=== PATIENT | male | born 1940 | race African-American/Black ===

== ENCOUNTER 2020-07-27 03:06 | Inpatient (IN) | payer OTHER ==
[~2020-07-27] VITALS: Ht 188 cm; Wt 112.1 kg
[2020-07-27 04:30] LABS: Basophils # (auto) 0 10 ^3/uL (0-0.2); Basophils % (auto) 0.4 % (0.0-2.0); Eosinophils # (auto) 0 10 ^3/uL (0-0.8); Hematocrit 41.6 % (41.0-53.0); Hemoglobin 13.8 g/dL (13.5-17.5); Lymphocytes # (auto) 1.5 10 ^3/uL (0.4-5.4); Mean Corpuscular Hemoglobin 32.7 pg (28.0-32.0); Mean Corpuscular Hgb Conc. 33.2 g/dL (32.0-36.0); Mean Corpuscular Volume 98.4 fL (80.0-100.0); Monocytes # (auto) 0.7 10 ^3/uL (0-1.3); Monocytes % (auto) 9.1 % (0.0-12.0); Neutrophils # (auto) 5.5 10 ^3/uL (1.6-8.6); Neutrophils % (auto) 71.5 % (37.0-80.0); Nucleated Red Blood Cells % 0.1 %; Platelet Count (auto) 191 10^3/uL (140-450); Red Blood Cells 4.22 10^6/uL (4.5-5.90); Red Cell Distribution Width 14.1 % (11.8-14.3); White Blood Cell 7.7 10^3/uL (4.4-10.8)
[2020-07-27 04:49] LABS: INR 1.09 (0.9-1.15); Partial Thromboplastin Time 29.9 sec (23.0-31.2)
[2020-07-27 04:59] LABS: Albumin 3.9 g/dL (3.4-5.0); Magnesium 2.5 mg/dL (1.6-2.6); Potassium 3.9 mmol/L (3.5-5.1)
[2020-07-27 05:05] LABS: BUN/Creatinine Ratio 19.3; Bilirubin, Total 1.2 mg/dL (0.2-1.0)
[2020-07-27] MEDS ORDERED: ONDANSETRON HCL 4 MG/2 ML VIAL IV ONE (06:45)
[2020-07-27] MEDS ORDERED: MORPHINE SULFATE 4 MG/ML SYR/VIAL IV ONE (06:45)
[2020-07-27] MEDS ORDERED: NITROGLYCERIN 0.4 MG SL TAB SL ONE (08:30)
[2020-07-27] MEDS ORDERED: ASPirin 81 mg TAB PO ONE (08:30)
[2020-07-27] MEDS ORDERED: ENOXAPARIN SOD 150 MG/1 ML SYRINGE SC ONE (08:30)
[2020-07-27] MEDS ORDERED: ENOXAPARIN SOD 100 MG/1 ML SYRINGE SC ONE (09:00)
[2020-07-27] MEDS ORDERED: ENOXAPARIN SOD 120 MG/0.8 ML SYRINGE SC ONE (09:00)
[2020-07-27] MEDS ORDERED: MORPHINE SULF INJ 2 MG/ML SYRINGE 1ML IV PRN (09:30)
[2020-07-27] MEDS ORDERED: NITROGLYCERIN 0.4 MG SL TAB SL PRN (09:30)
[2020-07-27] MEDS ORDERED: TEMAZEPAM 15 MG CAP PO PRN (10:00)
[2020-07-27] MEDS: ASPirin 81 mg TAB PO SCH (10:00)
[2020-07-27] MEDS ORDERED: DEXTROSE (50%) 50ML SYRG IV PRN (10:00)
[2020-07-27] MEDS ORDERED: CLOPIDOGREL BISULFATE 75 MG TAB PO ONE (10:00)
[2020-07-27] MEDS ORDERED: LACTULOSE 20Gm/30ML SOLN PO PRN (10:00)
[2020-07-27] MEDS ORDERED: ACETAMINOPHEN 500 MG TAB PO PRN (10:00)
[2020-07-27] MEDS: CLOPIDOGREL BISULFATE 75 MG TAB PO SCH (10:00)
[2020-07-27] MEDS ORDERED: ONDANSETRON HCL 4 MG/2 ML VIAL IV PRN (10:00)
[2020-07-27] MEDS ORDERED: traMADol HCL 50 MG TAB PO PRN (10:00)
[2020-07-27] MEDS: NITROGLYCERIN 0.2MG/HR TOPICAL PATCH TD SCH (10:20)
[2020-07-27] MEDS ORDERED: LISI20TA28 PO (10:56)
[2020-07-27] MEDS ORDERED: ASPI-543 PO (10:56)
[2020-07-27] MEDS ORDERED: ATOR-47 PO (10:56)
[2020-07-27] MEDS ORDERED: NIFE1TAB30 PO (10:56)
[2020-07-27] MEDS ORDERED: HYDR-4072 PO (10:56)
[2020-07-27] MEDS ORDERED: ISOS60TA24 PO (10:56)
[2020-07-27] MEDS: InsuLIN REG 1unit/0.01ml Soln (100units/ml) SC SCH ×3 (11:30→22:00)
[2020-07-27] MEDS: ACCU-CHEK COMFORT CURVE STRIP VI SCH ×3 (12:08→21:55)
[2020-07-27] MEDS ORDERED: IOHEXOL 350 MG/ML 100ML IJ ONE ×2 (13:10→13:31)
[2020-07-27] MEDS ORDERED: LIDOCAINE 2%HCL (LOCAL ANESTH.) INJ 20ML MDV ONE (13:10)
[2020-07-27] MEDS ORDERED: MIDAZOLAM HCL 1MG/1ML-2 ML VIAL ONE (13:12)
[2020-07-27] MEDS ORDERED: SODIUM CHL 0.9% 50 ML ONE (13:12)
[2020-07-27] MEDS ORDERED: ANGIOMAX 250 MG VIAL IV ONE (13:12)
[2020-07-27] MEDS ORDERED: fentaNYL CITRATE 100 MCG/2 ML VL ONE (13:12)
[2020-07-27] MEDS ORDERED: HEPARIN SODIUM (PORCINE) 5000 UNITS/ML 1ML VIAL ONE (13:25)
[2020-07-27] MEDS ORDERED: VERAPAMIL 2.5MG/ML INJ 2ML VIAL IV ONE (13:25)
[2020-07-27] MEDS ORDERED: hydrALAZINE HCL 20 MG/ML VL ONE (13:51)
[2020-07-27] MEDS: SODIUM CHLOR 0.9% PF (SALINE LOCK) 10ML VIAL/SYR IV SCH ×2 (14:00→21:54)
[2020-07-27 22:00] VITALS: BP 133/75
[2020-07-27] MEDS ORDERED: ATORVASTATIN 20 MG TAB PO SCH (22:00)
[2020-07-27] MEDS ORDERED: ENOXAPARIN SOD 120 MG/0.8 ML SYRINGE SC SCH (22:00)
[2020-07-28 05:00] VITALS: BP 146/77
[2020-07-28] MEDS: InsuLIN REG 1unit/0.01ml Soln (100units/ml) SC SCH ×2 (06:12→11:30)
[2020-07-28 06:18] LABS: Cholesterol 147 mg/dL (< 200); HDL Cholesterol 51 mg/dL (40-59); LDL Cholesterol 77 mg/dL (< 100); Triglycerides 131 mg/dL (< 150)
[2020-07-28] MEDS: SODIUM CHLOR 0.9% PF (SALINE LOCK) 10ML VIAL/SYR IV SCH ×2 (06:32→11:36)
[2020-07-28] MEDS: ACCU-CHEK COMFORT CURVE STRIP VI SCH ×2 (06:32→11:30)
[2020-07-28] MEDS ORDERED: HYDROcodone-ACET 5/325MG TAB PO ONE (08:45)
[2020-07-28 09:00] VITALS: BP 138/80
[2020-07-28] MEDS: ASPirin 81 mg TAB PO SCH (09:01)
[2020-07-28] MEDS: CLOPIDOGREL BISULFATE 75 MG TAB PO SCH (09:01)
[2020-07-28] MEDS: NITROGLYCERIN 0.2MG/HR TOPICAL PATCH TD SCH (09:02)
[2020-07-28] MEDS ORDERED: LACTULOSE 20Gm/30ML SOLN PO ONE (10:30)
[2020-07-28 13:00] VITALS: BP 129/64
[2020-07-28 13:30] VITALS: BP 129/64
== END 2020-07-28 15:00 | disposition home or self-care (01) | DRG 250 ==
LOC: EDBD 03:06 → ER 03:09 → TELE 09:19 → TELE-CENTR 16:04
PROVIDERS: ADMIT Internal Medicine; ATTEND Internal Medicine
PROC: 4A023N7 Measurement of Cardiac Sampling and Pressure, Left Heart, Percutaneous Approach (ICD-10-PCS; principal; 2020-07-27)
PROC: 02703ZZ Dilation of Coronary Artery, One Artery, Percutaneous Approach (ICD-10-PCS; 2020-07-27)
PROC: B2111ZZ Fluoroscopy of Multiple Coronary Arteries using Low Osmolar Contrast (ICD-10-PCS; 2020-07-27)
PROC: B2151ZZ Fluoroscopy of Left Heart using Low Osmolar Contrast (ICD-10-PCS; 2020-07-27)
PROC: 4A033BC Measurement of Arterial Pressure, Coronary, Percutaneous Approach (ICD-10-PCS; 2020-07-27)
PROC: 02C03ZZ Extirpation of Matter from Coronary Artery, One Artery, Percutaneous Approach (ICD-10-PCS; 2020-07-27)
PROC: B240ZZ3 Ultrasonography of Single Coronary Artery, Intravascular (ICD-10-PCS; 2020-07-27)
DX: T82.855A Stenosis of coronary artery stent, initial encounter (principal); I21.4 Non-ST elevation (NSTEMI) myocardial infarction; Z20.822 Contact with and (suspected) exposure to COVID-19; I25.10 Atherosclerotic heart disease of native coronary artery without angina pectoris; I10 Essential (primary) hypertension; E66.9 Obesity, unspecified; I49.3 Ventricular premature depolarization; M47.9 Spondylosis, unspecified; F41.9 Anxiety disorder, unspecified; M19.90 Unspecified osteoarthritis, unspecified site; M54.10 Radiculopathy, site unspecified; Z68.31 Body mass index [BMI] 31.0-31.9, adult; Z79.899 Other long term (current) drug therapy; Z79.891 Long term (current) use of opiate analgesic; Z85.46 Personal history of malignant neoplasm of prostate; Z79.02 Long term (current) use of antithrombotics/antiplatelets; Z83.3 Family history of diabetes mellitus; Z87.891 Personal history of nicotine dependence; Z90.79 Acquired absence of other genital organ(s); Z79.01 Long term (current) use of anticoagulants; Z79.82 Long term (current) use of aspirin; E78.5 Hyperlipidemia, unspecified
CPT/HCPCS: 36415; 71045; 80053; 80061; 82962; 83036; 83735; 83880; 84443; 84484; 85025; 85379; 85610; 85730; 87426; 92924; 92933; 93005; 93306; 93458; 93971; 96372; 96374; 96375; 99152; 99153; 99291; C1887; G0378; J2250; J2405

== ENCOUNTER 2022-10-06 10:37 | Emergency (ER) | payer OTHER ==
[~2022-10-06] VITALS: Ht 188 cm; Wt 95.4 kg
[~2022-10-06 10:37] MED LIST: ASPI-543 PO; ATOR-47 PO; HYDR-4072 PO; ISOS60TA24 PO; LISI20TA56 PO; NIFE1TAB30 PO
[2022-10-06 11:11] LABS: Basophils # (auto) 0 10 ^3/uL (0-0.2); Basophils % (auto) 0.3 % (0.0-2.0); Eosinophils # (auto) 0 10 ^3/uL (0-0.8); Hematocrit 41.3 % (41.0-53.0); Hemoglobin 13.3 g/dL (13.5-17.5); Lymphocytes # (auto) 1.9 10 ^3/uL (0.4-5.4); Lymphocytes % (auto) 39.2 % (10.0-50.0); Mean Corpuscular Hemoglobin 32.5 pg (28.0-32.0); Mean Corpuscular Hgb Conc. 32.3 g/dL (32.0-36.0); Mean Corpuscular Volume 100.7 fL (80.0-100.0); Monocytes # (auto) 0.3 10 ^3/uL (0-1.3); Monocytes % (auto) 6.5 % (0.0-12.0); Neutrophils # (auto) 2.6 10 ^3/uL (1.6-8.6); Nucleated Red Blood Cells % 0.1 %; Red Cell Distribution Width 13.4 % (11.8-14.3); White Blood Cell 4.9 10^3/uL (4.4-10.8)
[2022-10-06 11:27] LABS: INR 1.11 (0.9-1.15); Partial Thromboplastin Time 30.8 SEC (24.5-34.5)
[2022-10-06 11:39] LABS: Calcium 9.4 mg/dL (8.5-10.1); Magnesium 2.5 mg/dL (1.6-2.6)
[2022-10-06 11:43] LABS: BUN/Creatinine Ratio 16.2 (10.0-20.0)
[2022-10-06 11:44] LABS: Bilirubin, Total 1.9 mg/dL (0.2-1.0); Total Protein 7.6 g/dL (6.4-8.2)
[2022-10-06] MEDS ORDERED: SODIUM CHLORIDE 0.9% 1,000 ML IV ONE (15:00)
[2022-10-06] MEDS ORDERED: PANTOPRAZOLE 40 MG/10 ML VIAL INJ IV ONE (15:00)
[2022-10-06] MEDS ORDERED: HEPARIN DRIP/D5W 100UNITS/ML 250 ML IV SCH (15:00)
[2022-10-06] MEDS ORDERED: ASPirin 81 mg TAB PO ONE (15:00)
[2022-10-06] MEDS ORDERED: NITROGLYCERIN 0.2MG/HR TOPICAL PATCH TD ONE (15:00)
[2022-10-06] MEDS ORDERED: ATORVASTATIN 20 MG TAB PO ONE (15:00)
[2022-10-06] MEDS ORDERED: MORPHINE SULFATE 4 MG/ML SYR/VIAL IV ONE (15:00)
[2022-10-06] MEDS ORDERED: HEPARIN SODIUM (PORCINE) 5000 UNITS/ML 1ML VIAL IV ONE ×2 (15:00→16:45)
[2022-10-06] MEDS ORDERED: ACETAMINOPHEN 325 MG TAB PO PRN (15:00)
[2022-10-06] MEDS ORDERED: HYDROcodone-ACET 10/325MG TAB PO ONE (15:00)
[2022-10-06 15:40] VITALS: PULSE 103; RESP 16; O2SAT 98
[2022-10-06 16:27] LABS: Magnesium 2.5 mg/dL (1.6-2.6)
[2022-10-06 19:25] VITALS: PULSE 74; RESP 14; O2SAT 95
[2022-10-06 20:18] VITALS: BP 130/65; PULSE 77; RESP 21; TEMP 98.3; O2SAT 97
[2022-10-06] MEDS ORDERED: SODIUM CHLOR 0.9% PF (SALINE LOCK) 10ML VIAL/SYR IV SCH (22:00)
[2022-10-07] MEDS ORDERED: METOPROLOL SUCCINATE XL 50 MG TAB PO SCH (10:00)
== END 2022-10-06 20:55 | disposition short-term general hospital (02) ==
LOC: EDBD 10:37 → ER 10:37
DX: I21.4 Non-ST elevation (NSTEMI) myocardial infarction (principal); I24.9 Acute ischemic heart disease, unspecified; I11.0 Hypertensive heart disease with heart failure; I50.9 Heart failure, unspecified; R06.03 Acute respiratory distress; I25.2 Old myocardial infarction; E78.5 Hyperlipidemia, unspecified; Z98.61 Coronary angioplasty status; Z85.46 Personal history of malignant neoplasm of prostate; Z98.890 Other specified postprocedural states; Z79.1 Long term (current) use of non-steroidal anti-inflammatories (NSAID); Z79.82 Long term (current) use of aspirin; Z79.899 Other long term (current) drug therapy
CPT/HCPCS: 36415; 71045; 80053; 80061; 83735; 83880; 84484; 85025; 85610; 85730; 93005; 96361; 96365; 96366; 96375; 96376; 99285; C9113; J1644; J7030